=== PATIENT | male | born 1960 | race Caucasian/White ===

== ENCOUNTER 2017-08-08 10:41 | Day surgery (SDC) | payer BC ==
[2017-08-08] MEDS ORDERED: NS 1,000 ML IV ONE (10:49)
[2017-08-08] MEDS ORDERED: ceFAZolin 2 GM/SWFI 2 GM/20 ML SYR IVP ONE (10:49)
[2017-08-08] MEDS ORDERED: BACITRACIN IRRIGATION/NS 50,000 UNITS/1,000 ML BTL IRR ONE (10:49)
--- NOTE | 2017-08-08 11:04 | CPEKG ---
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
[2017-08-08 11:20] LABS: PLATELET COUNT 234 10^3/uL (150-400)
[2017-08-08 11:32] LABS: INR 0.99 (0.83-1.16); PROTIME(PATIENT) 13.3 SEC (12.0-15.0)
--- NOTE | 2017-08-08 11:38 | PDGENHP ---
History & Physical Chief Complaint: icd is at [facility] Relevant Physical Exam: s1s2 rrr. cta. ao3 Cardiorespiratory Assessment: ischemic cardiomyopathy. prior icd, generator at [facility]. has had 1 appropriate rx for vt (i have reviewed intracardiac egm that shows vt). plan generator change
--- NOTE | 2017-08-08 12:03 | PDANEPAE ---
ANE History of Present Illness here for ICD gen change ANE Past Medical History - Cardiovascular History Hx Hypertension: Yes Hx Arrhythmias: Yes Hx Chest Pain: No Hx Coronary Artery / Peripheral Vascular Disease: Yes Hx CHF / Valvular Disease: No Hx Palpitations: No - Pulmonary History Hx COPD: No Hx Asthma/Reactive Airway Disease: No Hx Recent Upper Respiratory Infection: No Hx Oxygen in Use at Home: No Hx Sleep Apnea: No - Neurologic History Hx Cerebrovascular Accident: No Hx Seizures: No Hx Dementia: No - Endocrine History Hx Diabetes: No Hypothyroid: No Hyperthyroid: No Obesity: no - Renal History Hx Renal Disorders: No - Liver History Hx Hepatic Disorders: No ANE Review of Systems Review of systems is: negative Review of Systems: - Exercise capacity Exercise capacity: >=4 METS ANE Patient History - Allergies Allergies/Adverse Reactions: No Known Allergies Allergy (Unverified 08/08/17 10:48) - Home Medications Home medications: home medication list seen and reviewed Home Medications: Aspirin 325 mg (*) 08/08/17 [Last Taken 08/07/17] Cholecalciferol (Vitamin D3) [Vitamin D3] 08/08/17 [Last Taken 08/07/17] Clopidogrel Bisulfate [Plavix] 08/08/17 [Last Taken 08/07/17] Coreg 08/08/17 [Last Taken 08/07/17] FOLIC ACID 08/08/17 [Last Taken 08/07/17] Lansoprazole 08/08/17 [Last Taken 08/07/17] Multivitamins [Multivitamin (*)] 08/08/17 [Last Taken 08/07/17] [place]-3 Fish Oil Softgel 08/08/17 [Last Taken 08/07/17] Rosuvastatin Calcium 08/08/17 [Last Taken 08/07/17] Valsartan 08/08/17 [Last Taken 08/07/17] - NPO status NPO Status: no food or drink >8 hours - Smoking Hx Smoking Status: Current some day smoker ANE Labs/Vital Signs - Labs Result Diagrams: 08/08/17 11:05 08/08/17 11:05 - Vital Signs Vital Signs: reviewed preoperatively; see RN documention for details Height: 175.26 cm Weight: 88.451 kg ANE Physical Exam - Airway Neck exam: FROM Mallampati Score: Class 1 - Pulmonary Pulmonary: no respiratory distress - Cardiovascular Cardiovascular: regular rate and rhythym - ASA Status ASA Status: III ANE Anesthesia Plan Anesthesia Plan: GA with mask
[2017-08-08] MEDS ORDERED: MIDAZOLAM 2 MG/2 ML VIAL IVP ONE (12:07)
[2017-08-08] MEDS ORDERED: MIDAZOLAM 2 MG/2 ML VIAL ONE (12:10)
[2017-08-08] MEDS ORDERED: fentaNYL 100 MCG/2 ML INJ ONE ×2 (12:27→12:45)
[2017-08-08] MEDS ORDERED: PROPOFOL/EMULSION 500 MG/50 ML BOTTLE IV ONE ×2 (12:28→13:04)
[2017-08-08] MEDS ORDERED: LIDOCAINE 1% 300 MG/30 ML SDV ONE (12:40)
[2017-08-08] MEDS ORDERED: BUPIVACAINE 0.5% 30 ML SDV ONE (12:40)
--- NOTE | 2017-08-08 13:47 | POSTANESTH ---
Post Anesthetic Evaluation Cardiovascular Status: Normal, Stable Respiratory Status: Normal, Stable Level of Consciousness/Mental Status: Can Participate in Eval Pain Control: Adequate, Prn Tx Ordered Nausea/Vomiting Control: Adequate, Prn Tx Ordered Complications Possibly Related to Anesthesia: None Noted
--- NOTE | 2017-08-08 14:57 | CPEKG ---
Heart Rate: 59 RR Interval: 1017 P-R Interval: 192 QRSD Interval: 104 QT Interval: 392 QTC Interval: 389 P [place]: 51 QRS [place]: 34 T Wave [place]: -32 EKG Severity - ABNORMAL ECG - EKG Impression: SINUS RHYTHM EKG Impression: INFERIOR INFARCT, AGE INDETERMINATE Electronically Signed By: Mario Cat 08-Aug-2017 17:32:50
[2017-08-08 16:12] VITALS: BP 149/80
--- NOTE | 2017-08-08 16:52 | EPPROC ---
Electrophysiology Procedure Note: PROCEDURE PERFORMED: 1. Explantation of an A-V Implantable Cardioverter Defibrillator 2. Implantation of an A-V Implantable Cardioverted Defibrillator 3. EP study induction of ventricular fibrillation and defibrillation testing INDICATION: ICD Generator at [facility] Cardiomyopathy PROCEDURE NOTE: Patient presented to the cardiac catheterization laboratory in a fasting, postabsorptive state. Dr. John Gar administered sedation. The left infraclavicular area was prepped and draped in the usual sterile fashion. Lidocaine plus bupivacaine was used for local anesthesia. Using a combination of blunt and sharp dissection and electrocautery, the dissection was carried down to the prepectoral fascia and the existing ICD pocket was opened. The ICD generator was disconnected from the leads and the lead thresholds and impedance were checked. The ICD pocket was copiously irrigated with antibiotic solution. The pocket was again inspected for any bleeding. The leads were attached to the ICD securely. The ICD was inserted into the pocket and secured in place with a nonabsorbable suture. Of note, ICD capsule was calcified. Defibrillation testing was performed. The ICD pocket was closed in 3 layers with absorbable monocryl sutures and radha. Appropriate dressing was applied. The patient left the cardiac catheterization laboratory in stable condition. Serial Numbers: 1. Implanted Device: [employer] serial [id number] 2. Atrial Lead: [place] [id number] 46 [id number] 3. Ventricular Lead: [place] 1581 65 [id number] Stimulation Thresholds & Impedance Measurements: 1. Atrial Lead P-wave 1.8 mV 0.9 volts 0.4 milliseconds 376 Ohms 2. Ventricular Lead R-wave 3.8 volts 1.3 volts at 0.4 milliseconds 348 Ohms Defibrillation testing: Ventricular fibrillation was induced by T-shock. The device sensed the ventricular fibrillation appropriately at minimum ventricular sensitivity (0.8 mV). A single DC shock of 20 Joule converted the ventricular fibrillation to sinus rhythm. There was single drop out as the device was charging, the final programming for ventricular sensing was at 0.5 mV because of this. Ventricular sensitivity was permanent programmed to 0.3 mV. Pacing Parameters: 1. Pacing mode: DDD 2. Lower rate: 40 3. Upper tracking rate: 140 beats per minute 4. Upper sensor rate: 140 beats per minute Tachycardia therapy parameters: VF zone : Detection 200 bpm First therapy ATP x1 Subsequent therapies 40 joules x8 VT zone : Detection 182 bpm First therapy ATP x3 Subsequent therapies 40 joules x8 VT monitor zone 154 beats per minute, no therapies Patient Problems: Problems Problem Status Onset Ischemic cardiomyopathy Acute Ventricular tachycardia Acute
== END 2017-08-08 16:41 | disposition home or self-care (01) ==
LOC: FCATH 10:41
PROVIDERS: ATTEND Internal Medicine Cardiovascular Disease
PROC: 0JH608Z Insertion of Defibrillator Generator into Chest Subcutaneous Tissue and Fascia, Open Approach (ICD-10-PCS; principal; 2017-08-08)
PROC: 0JPT0PZ Removal of Cardiac Rhythm Related Device from Trunk Subcutaneous Tissue and Fascia, Open Approach (ICD-10-PCS; principal; 2017-08-08)
DX: Z45.02 Encounter for adjustment and management of automatic implantable cardiac defibrillator (principal); I25.10 Atherosclerotic heart disease of native coronary artery without angina pectoris; I47.2 Ventricular tachycardia; Z95.810 Presence of automatic (implantable) cardiac defibrillator
CPT/HCPCS: C1721; J0690; J2250; J2704; J3010